=== PATIENT | male | born 1950 | race Caucasian/White ===

== ENCOUNTER → 2017-02-01 | Outpatient (CLI) | payer OTHER, MEDICARE ==
[2017-02-01 11:19] LABS: BASO % 0.2 %; BASO ABS # 0.01 K/uL (0-0.2); COMPLETE YES; EOS % 1.6 %; HEMATOCRIT 41.6 % (42-52); IG% 0.2 %; LYMPH % 24.5 %; LYMPH ABS # 1.38 K/uL (1.2-3.4); MEAN CELL VOLUME 87.4 fL (80-100); MEAN CORPUSCULAR HEMOGLOBIN 28.8 pg (25-34); MEAN CORPUSCULAR HGB CONC 32.9 g/dl (32-36); MEAN PLATELET VOLUME 9.8 fL (7.4-10.4); MONO % 13.3 %; NEUT % 60.2 %; PLATELET COUNT 301 K/uL (130-400); RED BLOOD COUNT 4.76 M/uL (4.7-6.1); WHITE BLOOD COUNT 5.64 K/uL (4.8-10.8)
[2017-02-01 11:44] LABS: CALCIUM 8.5 mg/dl (8.5-10.1)
[2017-02-01 11:50] LABS: ESTIMATED AVERAGE GLUCOSE 117 mg/dl; HA1C FLAG Normal (Normal)
[2017-02-01 11:52] LABS: ALT/SGPT 24 U/L (12-78); AST/SGOT 20 U/L (15-37); BLOOD UREA NITROGEN 19 mg/dl (7-18); BUN/CREATININE RATIO 19.9 (10-20); CARBON DIOXIDE 26 mmol/L (21-32); CHLORIDE 109 mmol/L (98-107); CHOLESTEROL 239 mg/dl (0-200); CREATININE 0.93 mg/dl (0.60-1.40); GLUCOSE 95 mg/dl (70-99); PHOSPHORUS 2.1 mg/dl (2.5-4.9); POTASSIUM 4.3 mmol/L (3.5-5.1); SODIUM 140 mmol/L (136-145); TRIGLYCERIDES 146 mg/dl (0-150); URIC ACID 5.7 mg/dl (2.6-7.2); VERY LOW DENSITY LIPOPROT CALC 29 mg/dl
[2017-02-01 11:58] LABS: ALB/GLOB RATIO 1.1 (0.9-2); ALKALINE PHOSPHATASE 67 U/L (45-117); CHOLESTEROL/HDL RATIO 5.2; HDL CHOLESTEROL 46 mg/dl; LDL CHOLESTEROL CALCULATED 164 mg/dl
--- NOTE | 2017-02-21 06:51 | CODING QUERY MEDICAL NECESSITY ---
SUPPORTING DIAGNOSIS NEEDED Dr. Newell, A supporting diagnosis is required for the test/procedure performed on this patient in order for us to be reimbursed by the patient's insurance. Please provide a supporting diagnosis for the following test/procedure listed below next to the test name along with your signature. *If there is no additional diagnosis for this patient that would support the following test/procedure please document that below next to the test/procedure. Test(s)/Procedure(s) that require a supporting diagnosis: * ([id number]) B12 VITAMIN LEVEL DIAGNOSIS: DATE OF SERVICE: 02/01/17 Provider Signature: Date: Thank you Sony Moreno [facility] Information Management Once completed, please kindly fax back to [phone] For questions please call [phone]
== END | disposition home or self-care (01) ==
LOC: C.LABBC 07:25
PROVIDERS: ATTEND Family Medicine
DX: R73.09 Other abnormal glucose (principal)

== ENCOUNTER → 2017-03-15 | Outpatient (CLI) | payer OTHER, MEDICARE ==
--- NOTE | 2017-03-16 07:39 | PULMONARY FUNCTION TEST ---
CLINICAL DATA: A 66-year-old male with a height of 70 inches and a weight of [address] Newell for evaluation of dyspnea and cough. Spirometry, pre and post-bronchodilator, lung volumes, and DLCO were performed. FINDINGS: Prebronchodilator spirometry demonstrates mild obstructive airways disease. FVC is 100% of predicted. FEV1 is 87% of predicted. FEF 25-75% is 51% of predicted. There was no significant improvement after inhaled bronchodilator. Lung volumes suggests a mild to moderate air trapping with a residual volume of 173% of predicted. There is no evidence of restrictive lung disease. DLCO was normal at 125% of predicted. IMPRESSION: Mild obstructive airways disease with no significant improvement after inhaled bronchodilator. Mild to moderate air trapping on lung volumes. Normal diffusion capacity. The fact that the patient has not have reversibility after inhaled bronchodilator does not preclude a trial of inhaled steroids and/or bronchodilator. Clinical correlation is needed. MTDD
== END | disposition home or self-care (01) ==
LOC: C.RC 12:58
PROVIDERS: ATTEND Family Medicine
DX: R06.00 Dyspnea, unspecified (principal)

== ENCOUNTER → 2017-07-05 | Outpatient (CLI) | payer OTHER, MEDICARE ==
[2017-07-05 12:48] LABS: BASO % 0.2 %; BASO ABS # 0.01 K/uL (0-0.2); COMPLETE YES; EOS % 0.6 %; HEMATOCRIT 41.2 % (42-52); IG% 0.2 %; LYMPH % 19.3 %; MEAN CELL VOLUME 86.4 fL (80-100); MEAN CORPUSCULAR HEMOGLOBIN 28.9 pg (25-34); MEAN CORPUSCULAR HGB CONC 33.5 g/dl (32-36); MEAN PLATELET VOLUME 9.7 fL (7.4-10.4); MONO % 11.1 %; NEUT % 68.6 %; PLATELET COUNT 257 K/uL (130-400); RED BLOOD COUNT 4.77 M/uL (4.7-6.1); WHITE BLOOD COUNT 6.22 K/uL (4.8-10.8)
[2017-07-05 13:14] LABS: ALT/SGPT 23 U/L (12-78); AST/SGOT 19 U/L (15-37); BLOOD UREA NITROGEN 17 mg/dl (7-18); BUN/CREATININE RATIO 21.7 (10-20); CALCIUM 8.9 mg/dl (8.5-10.1); CARBON DIOXIDE 26 mmol/L (21-32); CHLORIDE 109 mmol/L (98-107); CHOLESTEROL 190 mg/dl (0-200); CREATININE 0.76 mg/dl (0.60-1.40); GLUCOSE 92 mg/dl (70-99); POTASSIUM 4.2 mmol/L (3.5-5.1); SODIUM 139 mmol/L (136-145); TRIGLYCERIDES 105 mg/dl (0-150); URIC ACID 4.6 mg/dl (2.6-7.2); VERY LOW DENSITY LIPOPROT CALC 21 mg/dl
[2017-07-05 13:23] LABS: ALB/GLOB RATIO 1.2 (0.9-2); ALKALINE PHOSPHATASE 66 U/L (45-117); CHOLESTEROL/HDL RATIO 3.4; HDL CHOLESTEROL 56 mg/dl; LDL CHOLESTEROL CALCULATED 113 mg/dl; PROSTATE SPECIFIC ANTIGEN 0.828 ng/ml (0.000-4.000); TOTAL IRON BINDING CAPACITY 381 mcg/dl (250-450)
== END | disposition home or self-care (01) ==
LOC: C.LAB 11:48
PROVIDERS: ATTEND Family Medicine
DX: E88.81 Metabolic syndrome and other insulin resistance (principal); E55.9 Vitamin D deficiency, unspecified; D51.9 Vitamin B12 deficiency anemia, unspecified; E78.9 Disorder of lipoprotein metabolism, unspecified; R53.83 Other fatigue; N40.0 Benign prostatic hyperplasia without lower urinary tract symptoms

== ENCOUNTER → 2017-11-08 | Day surgery (SDC) | payer OTHER, MEDICARE ==
[2017-10-29 13:01] VITALS: Ht 175.3 cm; Wt 84.1 kg
[~2017-11-08] VITALS: Ht 175.3 cm; Wt 84.1 kg
[~2017-11-08] MED LIST: ATORVASTATIN PO; CHOL100010 PO; CYAN10005 PO; LIDOCAINE HCL 2% 2 ML VIAL (20MG/ML) ONE; MIDAZOLAM HCL 1 MG/ML 2ML VIAL ONE; MULTCAP33 PO; ONDANSETRON INJ 2 MG/ML 2 ML VIAL ONE; PROPOFOL IV EMULSION 10 MG/ML 20 ML VIAL IV ONE; SODIUM CHLORIDE 0.9% 500ML 500 ML IV ONE
--- NOTE | 2017-11-08 13:37 | Endo History and Physical ---
History & Physical Date of Service: Nov 08, 2017. Chief Complaint: history of polyps Referring Physician: Dr.Stephen Newell History of Present Illness 67 yo CM who presents for colonoscopy secondary to history of colon polyps. Past Surgical History Hx Cardiac Surgery: No Hx Internal Defibrillator: No Hx Pacemaker: No Hx Abdominal Surgery: No Hx of Implantable Prosthesis: No Hx Post-Op Nausea and Vomiting: No Hx Cancer Surgery: No Hx Thoracic Surgery: No Hx Orthopedic: Yes (RT WRIST FX REPAIR) Hx Urinary Tract Surgery: No Family History Colon CA Social History Smoking Status: Former Smoker Hx Substance Use: No Hx Alcohol Use: Yes (~1-2 BEERS/WEEK) Allergies Coded Allergies: No Known Allergies (Verified , 11/08/17) Current Medications Reported Home Medications Medications Dose Route/Sig Max Daily Dose Days Date Category Dose Instructions Vitamin B-12 (Cyanocobalamin) 1,000 Mcg Tab 1,000 Mcg PO DAILY 10/29/17 Reported Vitamin D (Cholecalciferol) 1,000 Unit Tab 1 Tab PO DAILY 10/29/17 Reported Preservision Areds (Multiple Vitamins W/ Minerals) 1 Cap Cap 1 Cap PO DAILY 10/29/17 Reported [Atorvastatin] Unknown Strength 1 Tab PO 2XWK 10/29/17 Reported TAKES WED AND SAT Vital Signs Weight (Kilograms): 84.09 Height (Feet): 5 Height (Inches): 9 Date Time Temp Pulse Resp B/P (MAP) Pulse Ox O2 Delivery O2 Flow Rate FiO2 11/08/17 13:32 36.5 51 16 124/65 (84) 99 Room Air Physical Exam General Appearance: WD/WN, no apparent distress Respiratory/Chest: Auscultation: breath sounds normal Cardiovascular: Heart Auscultation: RRR Abdomen: Bowel Sounds: normal Inspection & Palpation: soft, non-distended, no tenderness, guarding & rebound Assessment and Plan Assessment: 67 yo CM who presents for colonoscopy secondary to history of colon polyps. Plan: Proceed with colonoscopy.
--- NOTE | 2017-11-08 14:28 | Discharge Instructions ---
Endoscopy Patient Instructions Date / Procedure(s) Performed Nov 08, 2017. Colonoscopy Allergy Information Coded Allergies: No Known Allergies (Verified , 11/08/17) Discharge Date / Findings Nov 08, 2017. Rectal polyps Internal hemorrhoids Medication Instructions Stopped Medication(s): stopped all meds on Sunday OK to resume all medications today as prescribed Reported Home Medications Medications Dose Route/Sig Max Daily Dose Days Date Category Dose Instructions Vitamin B-12 (Cyanocobalamin) 1,000 Mcg Tab 1,000 Mcg PO DAILY 10/29/17 Reported Vitamin D (Cholecalciferol) 1,000 Unit Tab 1 Tab PO DAILY 10/29/17 Reported Preservision Areds (Multiple Vitamins W/ Minerals) 1 Cap Cap 1 Cap PO DAILY 10/29/17 Reported [Atorvastatin] Unknown Strength 1 Tab PO 2XWK 10/29/17 Reported TAKES WED AND SAT Provider Instructions Activity Restrictions - No exercising or heavy lifting for 24 hours. - Do not drink alcohol the day of the procedure. - Do not drive a car or operate machinery until the day after the procedure. - Do not make any important decisions or sign important papers in 24 hours after the procedure. Following Day: - Return to full activity which may include returning to work/school. Diet Start your diet with liquids and light foods (jello, soup, juice, toast). Then eat your usual diet if not nauseated. Treatment For Common After Affects For mild abdominal pain, bloating, or excessive gas: - Rest - Eat lightly - Lie on right side Follow-Up Information Follow-up with Dr.Stephen Newell as scheduled Anesthesia Information What You Should Know You have had a procedure that required some medicine to reduce anxiety and discomfort. This treatment is called moderate sedation. After receiving the treatment, you may be sleepy, but you will be able to breathe on your own. The effects of the treatment may last for several hours. Follow these instructions along with Activity/Diet recommendations noted above: * Do NOT do anything where dizziness or clumsiness would be dangerous. * Rest quietly at home today, then you can be up and about tomorrow. * Have a responsible person stay with you the rest of today. * You may have had an I.V. today. If so, you may take the dressing off later today. Recommendations Call your doctor if: * Trouble breathing * Continuous vomiting for more than 24 hours * Temperature above 101 degrees * Severe abdominal pain or bloating * Pain not relieved by pain medicine ordered * There is increased drainage or redness from any incision * A large amount of rectal bleeding greater than 2-3 tablespoons. (If you had a polyp/s removed or have hemorrhoids, a small amount of blood - from the rectum is to be expected.) * You have any unanswered questions or concerns. IN THE EVENT OF A SERIOUS EMERGENCY, GO TO THE NEAREST EMERGENCY ROOM Your discharge instructions were prepared by provider Antonio Toure. Patient Instructions Signature Page Franc Callejas Patient (or Guardian) Signature/Date: I have read and understand the instructions given to me by my caregivers. Caregiver/RN/Doctor Signature/Date: The above-named patient and/or guardian has received patient instructions on this date. + Original Patient Signature Page (only) stays with chart. Please make copy for patient.
--- NOTE | 2017-11-08 14:35 | GI REPORT ---
Procedure Date: 11/08/2017 1:31 PM Procedure: Colonoscopy Indications: High risk colon cancer surveillance: Personal history of colonic polyps Medicines: Monitored Anesthesia Care Complications: No immediate complications. Estimated Blood Loss: Estimated blood loss: none. Procedure: Pre-Anesthesia Assessment: - Prior to the procedure, a History and Physical was performed, and patient medications and allergies were reviewed. The patient's tolerance of previous anesthesia was also reviewed. The risks and benefits of the procedure and the sedation options and risks were discussed with the patient. All questions were answered, and informed consent was obtained. Prior Anticoagulants: The patient has taken no previous anticoagulant or antiplatelet agents. ASA Grade Assessment: II - A patient with mild systemic disease. After reviewing the risks and benefits, the patient was deemed in satisfactory condition to undergo the procedure. After I obtained informed consent, the scope was passed under direct vision. Throughout the procedure, the patient's blood pressure, pulse, and oxygen saturations were monitored continuously. The Scope was introduced through the anus and advanced to the terminal ileum. The colonoscopy was performed without difficulty. The patient tolerated the procedure well. The quality of the bowel preparation was good. The terminal ileum, ileocecal valve, appendiceal orifice, and rectum were photographed. Findings: The perianal and digital rectal examinations were normal. Two sessile polyps were found in the rectum. The polyps were 3 to 4 mm in size. These polyps were removed with a cold snare. Resection and retrieval were complete. Non-bleeding internal hemorrhoids were found during retroflexion. The hemorrhoids were small. Impression: - Two 3 to 4 mm polyps in the rectum, removed with a cold snare. Resected and retrieved. - Non-bleeding internal hemorrhoids. Recommendation: - Resume previous diet. - Continue present medications. - Repeat colonoscopy for surveillance based on pathology results. - Return to primary care physician as previously scheduled. Antonio Toure, 11/08/2017 2:35:41 PM This report has been signed electronically. Note Initiated On: 11/08/2017 1:31 PM I attest to the content of the Intraoperative Record and orders documented therein, exceptions below
--- NOTE | 2017-11-08 14:37 | Anesthesiology Progress Note ---
Anesthesia Post Op Note Date & Time Nov 08, 2017 at 14:37 Vital Signs Pain Intensity: 0 Vital Signs Past 12 Hours Date Time Temp Pulse Resp B/P (MAP) Pulse Ox O2 Delivery O2 Flow Rate FiO2 11/08/17 14:29 62 16 111/59 (76) 98 Room Air 11/08/17 14:14 61 16 127/54 (78) 97 Room Air 11/08/17 13:32 36.5 51 16 124/65 (84) 99 Room Air Notes Mental Status: alert / awake / arousable, participated in evaluation Pt Amnestic to Procedure: Yes Nausea / Vomiting: adequately controlled Pain: adequately controlled Airway Patency, RR, SpO2: stable & adequate BP & HR: stable & adequate Hydration State: stable & adequate Anesthetic Complications: no major complications apparent
[2017-11-08 14:47] VITALS: BP 123/68; PULSE 56; O2SAT 98
== END | disposition home or self-care (01) ==
LOC: C.GI 13:13
PROVIDERS: ATTEND Internal Medicine
DX: Z12.11 Encounter for screening for malignant neoplasm of colon (principal); Z86.010 Personal history of colon polyps; K64.8 Other hemorrhoids; K63.5 Polyp of colon; Z80.0 Family history of malignant neoplasm of digestive organs; Z87.891 Personal history of nicotine dependence; I34.1 Nonrheumatic mitral (valve) prolapse; K21.9 Gastro-esophageal reflux disease without esophagitis; M19.90 Unspecified osteoarthritis, unspecified site

== ENCOUNTER → 2017-12-29 | Outpatient (CLI) | payer OTHER, MEDICARE ==
[~2017-12-29] MED LIST changes: -LIDOCAINE HCL 2% 2 ML VIAL (20MG/ML) ONE; -MIDAZOLAM HCL 1 MG/ML 2ML VIAL ONE; -ONDANSETRON INJ 2 MG/ML 2 ML VIAL ONE; -PROPOFOL IV EMULSION 10 MG/ML 20 ML VIAL IV ONE; -SODIUM CHLORIDE 0.9% 500ML 500 ML IV ONE
[2017-12-29 08:15] LABS: BASO % 0.2 %; BASO ABS # 0.01 K/uL (0-0.2); EOS % 2.3 %; EOS ABS # 0.13 K/uL (0-0.5); IG# 0.01 K/uL (0.00-0.02); LYMPH % 30.6 %; LYMPH ABS # 1.74 K/uL (1.2-3.4); MEAN CELL VOLUME 87.2 fL (80-100); MEAN CORPUSCULAR HEMOGLOBIN 30.4 pg (25-34); MEAN CORPUSCULAR HGB CONC 34.9 g/dl (32-36); MEAN PLATELET VOLUME 9.2 fL (7.4-10.4); MONO % 11.4 %; MONO ABS # 0.65 K/uL (0.11-0.59); NEUT % 55.3 %; NEUT ABS # 3.14 K/uL (1.4-6.5); PLATELET COUNT 248 K/uL (130-400); RED CELL DISTRIBUTION WIDTH CV 13.2 % (11.5-14.5); WHITE BLOOD COUNT 5.68 K/uL (4.8-10.8)
[2017-12-29 08:22] LABS: HEMOGLOBIN A1C 5.4 % (4.5-5.6)
[2017-12-29 08:43] LABS: ALBUMIN 3.8 gm/dl (3.4-5.0); ALT/SGPT 23 U/L (12-78); BLOOD UREA NITROGEN 19 mg/dl (7-18); CALCIUM 8.6 mg/dl (8.5-10.1); CARBON DIOXIDE 28 mmol/L (21-32); CHOLESTEROL 212 mg/dl (0-200); CREATININE 0.89 mg/dl (0.60-1.40); GLUCOSE 88 mg/dl (70-99); POTASSIUM 4.1 mmol/L (3.5-5.1); SODIUM 138 mmol/L (136-145); URIC ACID 5.2 mg/dl (2.6-7.2)
[2017-12-29 08:52] LABS: ALKALINE PHOSPHATASE 76 U/L (45-117); AST/SGOT 18 U/L (15-37); LDL CHOLESTEROL CALCULATED 147 mg/dl; TOTAL PROTEIN 7.1 gm/dl (6.4-8.2); TRANSFERRIN 279 mg/dl (200-360)
== END | disposition home or self-care (01) ==
LOC: C.LAB 07:26
PROVIDERS: ATTEND Family Medicine
DX: R73.09 Other abnormal glucose (principal); E55.9 Vitamin D deficiency, unspecified; D51.9 Vitamin B12 deficiency anemia, unspecified; E78.9 Disorder of lipoprotein metabolism, unspecified; R53.83 Other fatigue

== ENCOUNTER → 2018-01-18 | Outpatient (CLI) | payer OTHER, MEDICARE ==
--- NOTE | 2018-01-18 12:02 | DIAGNOSTIC IMAGING REPORT ---
ULTRASOUND EXAM AAA SCREEN CLINICAL HISTORY: 67 years-old Male presenting with ELEVATED CHOLESTEROL, HX SMOKING. TECHNIQUE: Real-time grayscale and color and spectral Doppler ultrasound imaging of the abdominal aorta and iliac arteries was performed. COMPARISON: None. FINDINGS: Abdominal aorta: Patent. Peak systolic velocity 96 cm/s. Proximal aorta: Atherosclerosis. Transverse dimension 1.6 x 1.6 cm. Mid aorta: Atherosclerosis. Transverse dimension 1.6 x 2.0 cm. Distal aorta: Atherosclerosis. Transverse dimension 1.9 x 1.9 cm. Right iliac artery: Patent. Transverse dimension 1.0 x 1.0 cm. Left iliac artery: Patent. Transverse dimension 1.2 x 1.2 cm. IMPRESSION: 1. Atherosclerosis without evidence of abdominal aortic aneurysm. Electronically signed by: Yunior Gunn M.D. 01/18/2018 12:01 PM Dictated Date/Time: 01/18/2018 11:59 AM
--- NOTE | 2018-01-18 12:10 | DIAGNOSTIC IMAGING REPORT ---
CT LUNG SCREENING, LOW DOSE WITH COMPUTER-AIDED DETECTION (CAD) CLINICAL HISTORY: Smoking history COMPARISON STUDY: Outside CT scan performed October [address] CT DOSE: 87.34 mGy.cm TECHNIQUE: Low-dose helical CT was acquired without intravenous contrast from lung apices to bases and reconstructed at 2.5 mm every 2 mm. CAD was utilized for this study. A dose lowering technique was utilized adhering to the principles of ALARA. FINDINGS: Thyroid: Imaged portions of the thyroid gland are normal in appearance. Thoracic aorta: The ascending thoracic aorta measured 36 mm. Heart: Normal in size. Minimal coronary artery calcifications. No pericardial effusion. Lungs and pleural spaces: There is mild emphysema. There are tiny apical blebs. There is right apical pleural and parenchymal scarring. Mediastinum: There is no mediastinal lymphadenopathy. Mia: Clear. Axilla: Clear. Upper abdomen: Partially visualized upper abdominal viscera is within normal limits. Skeletal structures: There are no lytic or blastic osseous lesions. IMPRESSION: No suspicious pulmonary masses. Continue annual screening in 12 months. CAD FINDINGS: Overall Lung RADS Category: 1 Lung RADS Management Recommendation: Continue annual lung cancer screening. Lung RADS Follow Up Date: 2019-01-18 Lung RADS Nodule ID: Electronically signed by: Kevin Magaña M.D. 01/18/2018 12:09 PM Dictated Date/Time: 01/18/2018 11:59 AM
== END | disposition home health service (06) ==
LOC: C.ULTR 11:15
PROVIDERS: ATTEND Family Medicine
DX: Z87.891 Personal history of nicotine dependence (principal); E78.00 Pure hypercholesterolemia, unspecified